=== PATIENT | male | born 1985 | race Caucasian/White ===

== ENCOUNTER 2023-11-30 21:36 | Emergency (ER) | payer SELFPAY ==
[~2023-11-30] VITALS: Ht 175.3 cm; Wt 99.8 kg
[2023-12-01] MEDS ORDERED: MAG HYDROX/AL HYDROX/SIMETH 30 ML UDC ONE (00:09)
[2023-12-01] MEDS ORDERED: LIDOCAINE VISCOUS 2% UD 15 ML UDC ONE (00:09)
[2023-12-01] MEDS ORDERED: PANT40TA2 PO (00:14)
[2023-12-01] MEDS: MAG HYDROX/AL HYDROX/SIMETH 30 ML UDC PO ONE (00:15)
[2023-12-01] MEDS: LIDOCAINE VISCOUS 2% UD 15 ML UDC MM ONE (00:15)
[2023-12-01] MEDS ORDERED: ONDANSETRON HCL/PF 4 MG/2 ML VIAL ONE (00:19)
[2023-12-01] MEDS: ONDANSETRON HCL/PF 4 MG/2 ML VIAL IM ONE (00:26)
[2023-12-01 00:40] VITALS: BP 141/93; TEMP 97.9; O2SAT 99
== END 2023-12-01 00:41 | disposition home or self-care (01) ==
LOC: ER 21:38
DX: R09.A2 Foreign body sensation, throat (principal); K21.9 Gastro-esophageal reflux disease without esophagitis; H61.23 Impacted cerumen, bilateral; R07.0 Pain in throat
CPT/HCPCS: 99285; 70490; 96372; J2405